=== PATIENT | female | born 1980 | race African-American/Black ===

== ENCOUNTER 2019-05-16 07:29 | Day surgery (SDC) | payer OTHER ==
[2019-05-06 15:19] VITALS: BMI 33.6
--- NOTE | 2019-05-16 07:39 | OP ---
Operative Note - Note: Operative Date: 05/16/19 Pre-Operative Diagnosis: Chronic right ankle instability Operation: Right ankle arthroscopy and lateral ligament repair Post-Operative Diagnosis: Same as Pre-op Surgeon: Nabeel Tabor Sexual Assault Counselor: Janet Doyle Anesthesia: General Operative Report Dictated: Yes
[2019-05-16] MEDS ORDERED: MIDAZOLAM HCL 2 MG/2 ML SINGLE DOSE VIAL ONE ×2 (09:00)
[2019-05-16] MEDS ORDERED: BUPIVACAINE HCL 0.25% 125 MG/50 ML VIAL ONE (09:00)
[2019-05-16] MEDS ORDERED: ROCURONIUM BROMIDE 50 MG/5 ML SYRINGE ONE (09:01)
[2019-05-16] MEDS ORDERED: LIDOCAINE HCL/PF 2% SDV 5ML VIAL ONE (09:23)
[2019-05-16] MEDS ORDERED: ceFAZolin SODIUM 1 GM VIAL ONE (09:23)
[2019-05-16] MEDS ORDERED: NEOSTIGMINE METHYLSULFATE 0.5 MG/ML - 10 ML MDV ONE (10:44)
[2019-05-16] MEDS ORDERED: ONDANSETRON 4 MG/2 ML VIAL IVPUSH PRN (11:27)
[2019-05-16] MEDS ORDERED: LACTATED RINGERS SOLUTION 1,000 ML IV SCH (11:30)
[2019-05-16] MEDS ORDERED: ONDANSETRON 4 MG/2 ML VIAL ONE (12:05)
--- NOTE | 2019-05-16 12:16 | OP ---
DATE OF OPERATION: 05/16/2019 PREOPERATIVE DIAGNOSIS: Right ankle recurrent instability. POSTOPERATIVE DIAGNOSIS: Right ankle recurrent instability. PROCEDURE: Right ankle lateral ligamentous repair and diagnostic arthroscopy. ANESTHESIA: General. POSTOPERATIVE CONDITION: Stable. COMPLICATIONS: None. INDICATIONS: This is a pleasant woman who has suffered multiple ankle sprains and is having an increasingly difficult time with her recovery as well as feeling of ankle instability. Given these findings as well as her ligamentously lax exam, she is indicated for operative repair. We discussed the options of continued nonoperative care with bracing, therapy, activity modification. Reviewed the risks of surgery including bleeding, infection, neurovascular injury, need for further surgery, postoperative pain and stiffness, recurrent instability. We reviewed medical risks such as heart attack, stroke, DVT, PE and . We reviewed the recovery from surgery. Addressed all the patient's questions and concerns. She voiced understanding and elected to proceed. PROCEDURE: Patient was brought to the operating room where a general anesthetic was administered. She was placed supine on the operating room table prior to this. The right lower extremity was then prepped and draped in the usual sterile fashion. A preoperative dose of antibiotics was given and the usual timeout procedure was performed. Examination of the ankle prior to the start of the case demonstrated that there was positive anterior drawer as well as positive talar tilt. Comparison to the contralateral was limited. She has had multiple sprains on this ankle as well, but the other side demonstrated positive anterior drawer and negative talar tilt. The bony landmarks were then marked out. The superficial peroneal nerve course was marked out. The medial portal for the ankle arthroscopy was marked out. The incision was now made over the portal with a 15 blade using the [id number] technique. Prior to placing the arthroscope in the joint a 22-gauge needle was inserted and 10 mL of saline were inserted into the ankle joint to provide for easier access. The scope was now inserted into the ankle joint. The ankle joint was visualized. The talus demonstrated no articular lesions extending all the way from lateral to medial. There was some very small osteophyte formation on the anterior aspect of the distal tibia; however, there was no impingement and therefore no resection was deemed necessary. Visualizing the anterior portion of the fibula demonstrated some short ligament remnant consistent with previous sprain. Given these findings, it was felt that no intraarticular work was needed and therefore the arthroscope was withdrawn from the knee. The portal was sutured using 3-0 nylon. Attention was now turned laterally. A curvilinear incision was planned out over the distal fibula. This was carried down through subcutaneous tissue. Blunt spreading was used to expose the fascia over the distal fibula as well as the extensor retinaculum lateral border. Using blunt spreading, the tissue was easily elevated off the distal fibula with very tenuous attachments. This exposed the joint. The distal aspect of the fibula was roughened using a rasp. Two Q-FIX anchors were inserted, maintaining a proximal trajectory to avoid any penetration throughout the medial cortex. The sutures were then passed using a free needle through the ATFL tissue. These were passed in mattress fashion. The most proximal anchor was attempted to be tied and upon starting the tying process, the anchor lost purchase. The 2nd anchor was placed slightly more distal and then the suture passing was repeated. This resulted in secure tying in the 2nd attempt. The ankle was held in a position of eversion and neutral flexion during the tying of the sutures. After securing the 2 anchors, the repair was reinforced by using a SutureTape to imbricate the remainder of the ATFL tissue. After repeating this repair, 0 Vicryl sutures were used to create a 2nd layer of repair by incorporating the extensor retinaculum into the fibular periosteum. At this point the ankle was examined and now found to have no talar tilt and no anterior drawer. The wound was now irrigated. Subcutaneous tissue was approximated using 2-0 Vicryl. The skin was closed using 3-0 nylon. A sterile dressing was placed. Patient was placed into a well-padded short-leg cast in neutral position. She was transferred to the recovery room in stable condition. Elian [id number]
[2019-05-16] MEDS ORDERED: oxyCODONE HCL 5 MG TABLET ONE (13:58)
[2019-05-16 14:08] VITALS: TEMP 98.2
[2019-05-16] MEDS ORDERED: oxyCODONE HCL 5 MG TABLET PO ONE (15:23)
[2019-05-16 15:33] VITALS: BP 126/74; PULSE 92
== END 2019-05-16 15:35 | disposition home or self-care (01) ==
LOC: FASU 07:29
PROVIDERS: ATTEND Orthopaedic Surgery Sports Medicine
PROC: 0SJF4ZZ Inspection of Right Ankle Joint, Percutaneous Endoscopic Approach (ICD-10-PCS; 2019-05-16)
PROC: 0MQQ0ZZ Repair Right Ankle Bursa and Ligament, Open Approach (ICD-10-PCS; principal; 2019-05-16 09:33)
DX: M25.371 Other instability, right ankle (principal)
CPT/HCPCS: 84703; 94760